=== PATIENT | female | born 1965 | race Caucasian/White ===

== ENCOUNTER 2020-01-14 17:37 | Emergency (ER) | payer OTHER ==
[2020-01-14 21:08] LABS: ABS Basophils 0.1 10^3/ul (0-0.2); ABS Eosinophils 0.3 10^3/ul (0-0.6); ABS Lymphocytes 2.5 10^3/ul (1.0-4.8); ABS Monocytes 0.7 10^3/ul (0-0.8); ABS Neutrophils 4.4 10^3/ul (1.5-7.7); Eosinophil % 4.3 %; Hematocrit 39 % (35-47); Lymphocyte % 31.2 %; Mean Corpuscular HGB Conc 34 g/dL (31-36); Mean Corpuscular Hemoglobin 31 pg (27-31); Mean Corpuscular Volume 92 fL (80-97); Mean Platelet Volume 7.6 fL (7.4-10.4); Nucleated Red Blood Cells % 0.1; Platelet Count 266 10^3/uL (150-450); Red Blood Count 4.19 10^6 /uL (3.70-4.87); Red Cell Distribution Width 14 % (10-15)
[2020-01-14] MEDS ORDERED: cloNIDine TAB* 0.1 MG PO ONE (21:08)
[2020-01-14 21:23] LABS: ALT 31 U/L (7-52); AST 40 U/L (13-39); Albumin/Globulin Ratio 1.8 (1-3); Alkaline Phosphatase 97 U/L (34-104); Anion Gap 8 mmol/L (2-11); BUN/Creatinine Ratio 14.4 (8-20); Blood Urea Nitrogen 13 mg/dL (6-24); CO2 Carbon Dioxide 30 mmol/L (22-32); Calcium 9.9 mg/dL (8.6-10.3); Chloride 101 mmol/L (101-111); EGFR African American 79.3 (>60); EGFR Non-African American 65.5 (>60); Globulin 2.8 g/dL (2-4); Glucose 101 mg/dL (70-100); Potassium 3.3 mmol/L (3.5-5.0); Sodium 139 mmol/L (135-145); Total Protein 7.8 g/dL (6.4-8.9)
--- NOTE | 2020-01-14 21:33 | ED ---
Complex/Multi-Sys Presentation - HPI Summary HPI Summary: The patient is a 54-year-old female presenting to [facility] with a chief complaint of plastic poisoning and weird energy onset gradually since August 2019. She reports that in August 2019, she had to replace the ground in her outside kennel for her dogs, so her boyfriend brought bags of rocks home. She observed the material to be slimy and weird but she placed it in the outside kennel anyway. She noticed that her dogs would come inside with the material under their nails, but she would see it change colors and size bubble up like chemical reactions weird smells. She states that the material embedded itself in the floors and has made its way into her body, as she has seen it in her stools and her dogs stool. She believes she is being poisoned, as she is experiencing a weird energy. She states Im not prepared to say it [the material] is not radioactive. Tonight, her symptoms worsened as she felt her phone jump out of her pocket. PMHx: HTN, syringomelia, drug abuse. Former smoker , occasional EtOH, marijuana use. Medications reviewed. Allergies noted. - History Of Current Complaint Chief Complaint: EDGeneral Time Seen by Provider: 01/14/20 20:35 Hx Obtained From: Patient Onset/Duration: Gradual Onset, Lasting Weeks, Still Present Severity Currently: Moderate Severity Initially: Mild Aggravating Factor(s): change in environment Alleviating Factor(s): nothing Associated Signs And Symptoms: Positive: Other - "weird energy," abnormal stools - Allergies/Home Medications Allergies/Adverse Reactions: Allergies Allergy/AdvReac Type Severity Reaction Status Date / Time MS Morphine [Morphine] AdvReac Intermediate Headache Verified 01/14/20 18:26 Home Medications: Home Medications NK [No Home Medications Reported] 01/14/20 [History Confirmed 01/14/20] PMH/Surg Hx/FS Hx/Imm Hx Endocrine/Hematology History: Denies: Hx Anticoagulant Therapy, Hx Diabetes, Hx Thyroid Disease, Other Endocrine/Hematological Disorders Cardiovascular History: Reports: Hx Hypertension Denies: Hx Congestive Heart Failure, Other Cardiovascular Problems/Disorders Respiratory History: Denies: Hx Asthma, Other Respiratory Problems/Disorders GI History: Reports: Other GI Disorders - GASTROENTERITIS W/HOSPITALIZATION 2003 History: Denies: Other Problems/Disorders Musculoskeletal History: Reports: Hx Arthritis - hands, Hx Back Problems - SURGERY C5-C6, CHRONIC NECK/BACK PAIN, Other Musculoskeletal History - SYRINGOMYELIA, HX STRANGULATION Denies: Hx Osteoporosis Sensory History: Reports: Hx Contacts or Glasses Denies: Other Sensory Impairments Opthamlomology History: Reports: Hx Contacts or Glasses Denies: Other Sensory Impairments Neurological History: Reports: Hx Headaches, Hx Migraine, Hx Spinal Cord Injury - C5-C6, Other Neuro Impairments/Disorders - Syringomelia Psychiatric History: Denies: Hx Anxiety, Other Psychiatric Issues/Disorders - Surgical History Surgical History: Yes Surgery Procedure, Year, and Place: C-5 AND C-6 FUSION 2002 - Immunization History Date of Tetanus Vaccine: Unknown Date of Influenza Vaccine: UTD Infectious Disease History: No Infectious Disease History: Denies: Traveled Outside the [place] in Last 30 Days - Social History Alcohol Use: Occasionally Alcohol Amount: "occasional, wine" Substance Use Type: Reports: None, Marijuana Substance Use Comment - Amount & Last Used: "i smoke mj once in a while" prescribed opana, fioricet, oxycodone Hx Tobacco Use: Yes Smoking Status (MU): Former Smoker - Additional Comments History Additional Comments: drug abuse, hypertension, syringomelia Review of Systems - ROS Summary Review of Systems Summary: Home Medications Medication Instructions Recorded Confirmed Type NK [No Home Medications Reported] 01/14/20 01/14/20 History Positive: Other - "weird energy" Positive: Other - abnormal stools All Other Systems Reviewed And Are Negative: Yes Physical Exam - Summary Physical Exam Summary: General: Well-developed, Well-nourished female. Moderately agitated, disheveled. HEENT: Normocephalic, Atraumatic. Clear nasal discharge. Eyes: Conjuctiva normal, PERRL. Nares: Erythematous and edematous Oropharynx: Clear, mucous membranes moist, (-) exudates. Neck: Soft, FROM, (-) lymphadenopathy, (-) thyromegaly, (-) JVD. Cardiovascular: Normal sinus rhythm, (-) murmur. Lungs: Clear to auscultation bilaterally (-) wheezes, (-) rales, (-) rhonchi. Abdomen: Soft, non-tender, non-distended, (-) organomegaly, normal bowel sounds. Back: (-) CVA tenderness Extremities: 1+ lower extremity edema. Skin: Warm, dry. Eczematous changes of hands. Neuro: Alert and oriented x3, moves all extremities equally. No ataxia. No gait disturbance. No sensory deficit. Normal strength, normal sensation. Psychiatric: Mood is tearful to angry. Triage Information Reviewed: Yes Vital Signs On Initial Exam: Initial Vitals Temp Pulse Resp BP Pulse Ox 99.7 F 109 18 183/156 97 01/14/20 18:08 01/14/20 18:08 01/14/20 18:08 01/14/20 18:08 01/14/20 18:08 Vital Signs Reviewed: Yes Procedures - Sedation Patient Received Moderate/Deep Sedation with Procedure: No Diagnostics - Vital Signs Vital Signs Temp Pulse Resp BP Pulse Ox 01/14/20 21:09 230/120 01/14/20 21:00 26 01/14/20 20:39 17 195/119 01/14/20 20:38 25 212/149 01/14/20 20:36 29 01/14/20 19:55 97.6 F 73 20 182/109 100 01/14/20 18:08 99.7 F 109 18 183/156 97 - Laboratory Lab Results: Lab Results 01/14/20 01/14/20 01/14/20 Range/Units 20:42 20:42 20:42 WBC 8.0 (3.5-10.8) 10^3/uL RBC 4.19 (3.70-4.87) 10^6 /uL Hgb 13.0 (12.0-16.0) g/dL Hct 39 (35-47) % MCV 92 (80-97) fL MCH 31 (27-31) pg MCHC 34 (31-36) g/dL RDW 14 (10-15) % Plt Count 266 (150-450) 10^3/uL MPV 7.6 (7.4-10.4) fL Neut % (Auto) 54.3 % Lymph % (Auto) 31.2 % [place] % (Auto) 9.0 % Eos % (Auto) 4.3 % Baso % (Auto) 1.2 % Absolute Neuts (auto) 4.4 (1.5-7.7) 10^3/ul Absolute Lymphs (auto) 2.5 (1.0-4.8) 10^3/ul Absolute Monos (auto) 0.7 (0-0.8) 10^3/ul Absolute Eos (auto) 0.3 (0-0.6) 10^3/ul Absolute Basos (auto) 0.1 (0-0.2) 10^3/ul Absolute Nucleated RBC 0.0 10^3/ul Nucleated RBC % 0.1 Sodium 139 (135-145) mmol/L Potassium 3.3 L (3.5-5.0) mmol/L Chloride 101 (101-111) mmol/L Carbon Dioxide 30 (22-32) mmol/L Anion Gap 8 (2-11) mmol/L BUN 13 (6-24) mg/dL Creatinine 0.90 (0.51-0.95) mg/dL Est GFR ( Amer) 79.3 (>60) Est GFR (Non-Af Amer) 65.5 (>60) BUN/Creatinine Ratio 14.4 (8-20) Glucose 101 H (70-100) mg/dL Lactic Acid 1.2 (0.5-2.0) mmol/L Calcium 9.9 (8.6-10.3) mg/dL Total Bilirubin 0.50 (0.2-1.0) mg/dL AST 40 H (13-39) U/L ALT 31 (7-52) U/L Alkaline Phosphatase 97 (34-104) U/L Total Protein 7.8 (6.4-8.9) g/dL Albumin 5.0 (3.2-5.2) g/dL Globulin 2.8 (2-4) g/dL Albumin/Globulin Ratio 1.8 (1-3) TSH Pending Salicylates Pending Acetaminophen Pending Serum Alcohol Pending Result Diagrams: 01/14/20 20:42 01/14/20 20:42 Lab Statement: Any lab studies that have been ordered have been reviewed, and results considered in the medical decision making process. Re-Evaluation - Re-Evaluation First Eval Re-Evaluation Time: 00:15 Comment: I have discussed results with the patient. Discussed symptoms that warrant immediate return to ED. Complex Multi-Symp Course/Dx Course Of Treatment: 54-year-old female presents with concerns of being poisoned through a plastic substance. Back in August she needed to replace some rocks outside in her cannot. Her boyfriend brought home some bags of rocks that contractors use as temporary driveways. She states to the bags had weird slimy stuff inside. This substance has been part of the house by her dogs. She feels it is through her whole body. She states it's been in her stool. She has seen in her dog stool as well. She has concerns that perhaps it is radioactive. She feels the material breaks down and poisoned her. Patient has no significant physical findings other than mild agitation. Workup is essentially negative except for slightly low potassium which is replaced orally. Cocaine and marijuana in the urine. Patient surprised of cocaine in her urine. She denies any drug use. Patient advised to follow up with PCP. Follow-up sooner for any worsening symptoms. - Diagnoses Provider Diagnoses: Cocaine use, Hypokalemia, Abnormal fear, Hypertension Discharge ED - Sign-Out/Discharge Documenting (check all that apply): Patient Departure - Patient will be discharged home. - Discharge Plan Condition: Stable Disposition: HOME Patient Education Materials: Hypokalemia (ED), Cocaine Abuse (ED), Hypertension (ED) Referrals: [facility] [Outside] - 3 Days Additional Instructions: Please follow up with your primary care physician within three days. Please return to ED for any new or worsening symptoms. - Billing Disposition and Condition Condition: STABLE Disposition: Home - Attestation Statements Document Initiated by Zechariah: Yes Documenting Scribe: Donna Madsen Provider For Whom Zechariah is Documenting (Include Credential): MD Tiago Springibricky Attestation: Donna Flor scribed for Dr. Evelina Rodriguez MD on 01/15/20 at 0048. Scribe Documentation Reviewed: Yes Provider Attestation: The documentation as recorded by the Donna montiel accurately reflects the service I personally performed and the decisions made by me, Dr. Evelina Rodriguez MD Status of Zechariah Document: Viewed
[2020-01-14 22:04] LABS: Acetaminophen < 15 mcg/mL; Alcohol < 10 mg/dL (<10); Salicylate < 2.50 mg/dL (<30)
[2020-01-14 22:20] LABS: TSH (Thyroid Stimulating Horm) 0.89 mcIU/mL (0.34-5.60)
[2020-01-14] MEDS ORDERED: Potassium Chlor TAB* 20 MEQ TAB.ER PO ONE (22:32)
[2020-01-14 23:50] LABS: Urine Appearance Cloudy; Urine Bilirubin Negative (Negative); Urine Blood Negative (Negative); Urine Color Yellow; Urine Glucose Negative (Negative); Urine Ketones Negative (Negative); Urine Nitrite Negative (Negative); Urine Protein Negative (Negative); Urine Specific Gravity 1.008 (1.010-1.030); Urine Urobilinogen Negative (Negative)
[2020-01-14 23:53] LABS: Urine Bacteria Absent (Absent); Urine Red Blood Cell Absent (Absent); Urine Squamous Epithelial Cell Present (Absent); Urine White Blood Cell 1+(6-10/hpf) (Absent)
[2020-01-14 23:56] LABS: Urine Benzodiazepine Screen None Detected (None Detect); Urine Opiates Screen None Detected (None Detect)
[2020-01-15 00:31] VITALS: BP 91/55
== END 2020-01-15 00:31 | disposition home or self-care (01) ==
LOC: ED 17:37
DX: F14.90 Cocaine use, unspecified, uncomplicated (principal); E87.6 Hypokalemia; I10 Essential (primary) hypertension; F40.298 Other specified phobia; Z87.891 Personal history of nicotine dependence; Z88.6 Allergy status to analgesic agent
CPT/HCPCS: 36415; 80053; 80307; 80320; 80329; 81003; 81015; 83605; 84443; 85025; 87086; 99283; A9270-GY; G0480

== ENCOUNTER 2022-08-20 15:33 | Inpatient (IN) ==
[~2022-08-20 15:33] MED LIST: Naloxone 4 mg VIAL 0.4 MG/ML 10 ml VIAL (4 mg) ONE; Rocuronium 50 mg VIAL 10 mg/ml 5 ml VIAL (50 mg) ONE
[2022-08-20] MEDS ORDERED: Rocuronium 50 mg VIAL 10 mg/ml 5 ml VIAL (50 mg) ONE (15:46)
[2022-08-20] MEDS ORDERED: Etomidate 40 mg/20 ml (2 MG/ML) 20 ml VIAL (40 mg) ONE (15:46)
[2022-08-20] MEDS ORDERED: Propofol 10 mg/ml 100 ML BTL 100 ML ONE (15:50)
[2022-08-20] MEDS ORDERED: nitroGLYCERIN DRIP 0 MCG/0 ML BTL ONE (15:51)
[2022-08-20] MEDS ORDERED: Furosemide 40 mg/4 ml IV VIAL IV ONE (15:55)
[2022-08-20] MEDS ORDERED: nitroGLYCERIN DRIP 25,000 MCG/250 ML BTL IV SCH (16:00)
[2022-08-20] MEDS: Propofol 10 mg/ml 100 ML BTL 100 ML IV SCH ×2 (16:00→20:09)
[2022-08-20 16:46] LABS: ABS Basophils 0.1 10^3/ul (0-0.2); ABS Eosinophils 0.4 10^3/ul (0-0.6); ABS Lymphocytes 2.9 10^3/ul (1.0-4.8); ABS Monocytes 0.7 10^3/ul (0-0.8); ABS Neutrophils 5.9 10^3/ul (1.5-7.7); Eosinophil % 4.2 %; Hematocrit 44 % (35-47); Hemoglobin 14.9 g/dL (12.0-16.0); Lymphocyte % 29.3 %; Mean Corpuscular HGB Conc 34 g/dL (31-36); Mean Corpuscular Hemoglobin 32 pg (27-31); Mean Corpuscular Volume 95 fL (80-97); Mean Platelet Volume 7.3 fL (7.4-10.4); Platelet Count 220 10^3/uL (150-450); Red Blood Count 4.67 10^6 /uL (3.70-4.87); Red Cell Distribution Width 14 % (10-15); White Blood Count 9.9 10^3/uL (3.5-10.8)
[2022-08-20 16:51] LABS: INR 0.87 (0.89-1.11)
[2022-08-20 17:06] LABS: Urine Appearance Clear; Urine Bilirubin Negative (Negative); Urine Color Yellow; Urine Glucose Negative (Negative); Urine Ketones Negative (Negative)
[2022-08-20 17:07] LABS: Urine Blood Negative (Negative); Urine Nitrite Negative (Negative); Urine Protein Negative (Negative); Urine Urobilinogen 0.2 (Negative) (Negative)
[2022-08-20 17:39] LABS: Albumin 4.5 g/dL (3.2-5.2); Calcium 10.2 mg/dL (8.6-10.3); Globulin 2.3 g/dL (2-4); Potassium 4.2 mmol/L (3.5-5.0); Total Bilirubin 0.4 mg/dL (0.2-1.0); Total Protein 6.8 g/dL (6.4-8.9); eGFR CKD-EPI 80.9 (>60)
[2022-08-20] MEDS ORDERED: Propofol 10 MG/ML 20 ML BTL IV PUSH ONE (17:49)
[2022-08-20 19:54] LABS: Urine Benzodiazepine Screen Presumptive Positive (None Detect); Urine Cannabinoids Screen Presumptive Positive (None Detect); Urine Opiates Screen Presumptive Positive (None Detect)
[2022-08-20] MEDS ORDERED: Acetaminophen IV 1 GM/100ML 1,000 MG/100 ML BAG IV ONE (21:01)
[2022-08-20] MEDS: Chlorhexidine MOUTHWASH 0.12% 15 ML UDC SWISH SPIT SCH (21:50)
[2022-08-20] MEDS: Enoxaparin 40 MG/0.4 ML SYR SUBCUT SCH (21:50)
[2022-08-21] MEDS ORDERED: Midazolam 2 mg/2 ml VIAL 1 mg/ml 2 ml VIAL (2 mg) IV SLOW PU ONE (01:33)
[2022-08-21] MEDS ORDERED: Midazolam 2 mg/2 ml VIAL 1 mg/ml 2 ml VIAL (2 mg) ONE (01:35)
[2022-08-21] MEDS: Propofol 10 mg/ml 100 ML BTL 100 ML IV SCH ×3 (01:42→11:53)
[2022-08-21] MEDS: Chlorhexidine MOUTHWASH 0.12% 15 ML UDC SWISH SPIT SCH ×4 (02:03→12:25)
[2022-08-21] MEDS: cefTRIAXone 2 gm/50 mL D5W 2 GM/50 ML BAG IV SCH (04:20)
[2022-08-21 04:21] LABS: CO2 Carbon Dioxide 27 mmol/L (22-32); Calcium 9.3 mg/dL (8.6-10.3); Chloride 98 mmol/L (101-111); Sodium 140 mmol/L (135-145)
[2022-08-21 04:23] LABS: ABS Lymphocytes 1.2 10^3/ul (1.0-4.8); ABS Neutrophils 11.5 10^3/ul (1.5-7.7); Eosinophil % 0.1 %; Hematocrit 50 % (35-47); Hemoglobin 16.2 g/dL (12.0-16.0); Lymphocyte % 8.7 %; Mean Corpuscular HGB Conc 33 g/dL (31-36); Mean Corpuscular Hemoglobin 31 pg (27-31); Mean Corpuscular Volume 94 fL (80-97); Mean Platelet Volume 7.5 fL (7.4-10.4); Platelet Count 180 10^3/uL (150-450); Red Blood Count 5.26 10^6 /uL (3.70-4.87); Red Cell Distribution Width 15 % (10-15); White Blood Count 13.7 10^3/uL (3.5-10.8)
[2022-08-21 04:27] LABS: Blood Urea Nitrogen 14 mg/dL (6-24); Glucose 123 mg/dL (70-100); eGFR CKD-EPI 100.3 (>60)
[2022-08-21 04:30] LABS: Anion Gap 15 mmol/L (2-11)
[2022-08-21] MEDS ORDERED: Acetaminophen IV 1 GM/100ML 1,000 MG/100 ML BAG IV ONE (06:59)
[2022-08-21] MEDS: Pantoprazole VIAL 40 MG VIAL IV SCH (08:13)
[2022-08-21] MEDS ORDERED: Dexmedetomidine 1,000 MCG in NS 0.9% 250 ml 240 ML IV SCH (09:00)
[2022-08-21] MEDS: D5NS 0.9% 1000 ml BAG 1,000 ML IV SCH ×2 (10:07→23:09)
[2022-08-21] MEDS: niCARdipine 0.1MG/ML IVPREMIX 20 MG/200 ML BAG IV SCH ×4 (11:03→23:10)
[2022-08-21] MEDS ORDERED: Lorazepam PYXIS KEY PRN (15:56)
[2022-08-21] MEDS ORDERED: Acetaminophen IV 1 GM/100ML 1,000 MG/100 ML BAG IV SCH (16:00)
[2022-08-21] MEDS ORDERED: Multivitamins/Minerals TAB PO SCH (16:00)
[2022-08-21] MEDS: Enoxaparin 40 MG/0.4 ML SYR SUBCUT SCH (20:24)
[2022-08-21] MEDS: Acetaminophen IV 1 GM/100ML 1,000 MG/100 ML BAG IV PRN (20:24)
[2022-08-21] MEDS: LORazepam 2 mg VIAL 1 ml IV PUSH SCH (22:22)
[2022-08-22] MEDS: LORazepam 2 mg VIAL 1 ml IV PUSH SCH ×3 (00:05→10:48)
[2022-08-22] MEDS ORDERED: Metoclopramide 5 MG/ML VIAL (10 mg) IV SLOW PU ONE (01:03)
[2022-08-22] MEDS: niCARdipine 0.1MG/ML IVPREMIX 20 MG/200 ML BAG IV SCH ×3 (01:37→06:52)
[2022-08-22] MEDS: cefTRIAXone 2 gm/50 mL D5W 2 GM/50 ML BAG IV SCH (06:04)
[2022-08-22 06:41] LABS: ABS Lymphocytes 1.3 10^3/ul (1.0-4.8); ABS Monocytes 0.6 10^3/ul (0-0.8); Eosinophil % 0.2 %; Hematocrit 47 % (35-47); Hemoglobin 15.3 g/dL (12.0-16.0); Mean Corpuscular HGB Conc 33 g/dL (31-36); Mean Corpuscular Hemoglobin 31 pg (27-31); Mean Corpuscular Volume 94 fL (80-97); Mean Platelet Volume 7.5 fL (7.4-10.4); Platelet Count 197 10^3/uL (150-450); Red Blood Count 4.94 10^6 /uL (3.70-4.87); Red Cell Distribution Width 14 % (10-15)
[2022-08-22 07:19] LABS: Calcium 9.1 mg/dL (8.6-10.3); Magnesium 1.8 mg/dL (1.9-2.7); Potassium 3.5 mmol/L (3.5-5.0); eGFR CKD-EPI 105.9 (>60)
[2022-08-22] MEDS ORDERED: Magnesium Sulfate IV 1GM/100ML 1 GM/100 ML BAG IV ONE (07:31)
[2022-08-22] MEDS: Pantoprazole VIAL 40 MG VIAL IV SCH (07:58)
[2022-08-22] MEDS: KCL 20 MEQ/100 ML IVPREMIX 20 MEQ/100 ML BAG IV SCH ×3 (08:55→13:25)
[2022-08-22] MEDS ORDERED: Ondansetron 4 mg VIAL 2 MG/ML 2 ml VIAL IV ONE ×2 (09:27→15:44)
[2022-08-22] MEDS: Lidocaine PATCH 5% PATCH TRANSDERM SCH (10:17)
[2022-08-22] MEDS: Acetaminophen IV 1 GM/100ML 1,000 MG/100 ML BAG IV PRN ×2 (10:18→20:08)
[2022-08-22 10:19] LABS: C Reactive Protein 276.95 mg/L (<8.01)
[2022-08-22] MEDS ORDERED: Senna TAB 8.6 mg TAB PO PRN (10:42)
[2022-08-22] MEDS ORDERED: Iohexol 350 (CONTRAST) 500 ML MDV IV ONE (11:08)
[2022-08-22] MEDS: Butalb/Acetamin/Caff TAB 325-50-40MG PO PRN (11:52)
[2022-08-22] MEDS ORDERED: Labetalol IV 5 MG/ML 20 ml VIAL IV PUSH ONE (12:56)
[2022-08-22] MEDS ORDERED: Labetalol IV 5 MG/ML 20 ml VIAL IV PUSH PRN (16:50)
[2022-08-22] MEDS ORDERED: Prochlorperazine 5 mg/ml 2 ml VIAL (10 mg) IV ONE (19:56)
[2022-08-22] MEDS: Enoxaparin 40 MG/0.4 ML SYR SUBCUT SCH (21:02)
[2022-08-22] MEDS: Polyethylene Glycol 3350 17 GM PACKET PO SCH (21:03)
[2022-08-22 23:35] LABS: High Sensitivity Troponin 1 Hr 640 pg/mL (<15)
[2022-08-23] MEDS ORDERED: Enoxaparin 30 MG/0.3 ML SYR SUBCUT ONE (00:55)
[2022-08-23] MEDS: Ondansetron 4 mg VIAL 2 MG/ML 2 ml VIAL IV PRN ×2 (02:33→18:17)
[2022-08-23] MEDS: cefTRIAXone 2 gm/50 mL D5W 2 GM/50 ML BAG IV SCH (05:30)
[2022-08-23 06:14] LABS: ABS Lymphocytes 1.6 10^3/ul (1.0-4.8); ABS Monocytes 0.8 10^3/ul (0-0.8); ABS Neutrophils 9.1 10^3/ul (1.5-7.7); Eosinophil % 0.1 %; Hematocrit 51 % (35-47); Hemoglobin 17.1 g/dL (12.0-16.0); Lymphocyte % 14.2 %; Mean Corpuscular HGB Conc 34 g/dL (31-36); Mean Corpuscular Hemoglobin 32 pg (27-31); Mean Corpuscular Volume 93 fL (80-97); Mean Platelet Volume 7.6 fL (7.4-10.4); Platelet Count 210 10^3/uL (150-450); Red Blood Count 5.43 10^6 /uL (3.70-4.87); Red Cell Distribution Width 14 % (10-15); White Blood Count 11.6 10^3/uL (3.5-10.8)
[2022-08-23 06:48] LABS: Calcium 9.9 mg/dL (8.6-10.3); Potassium 3.7 mmol/L (3.5-5.0); eGFR CKD-EPI 88.3 (>60)
[2022-08-23] MEDS: KCL 10 MEQ/50 ML IVPREMIX 10 MEQ/50 ML BAG IV SCH ×2 (08:59→10:36)
[2022-08-23] MEDS: Pantoprazole VIAL 40 MG VIAL IV SCH (09:00)
[2022-08-23] MEDS: Enoxaparin 60 MG/0.6 ML SYR SUBCUT SCH ×2 (09:00→21:07)
[2022-08-23] MEDS: Lidocaine PATCH 5% PATCH TRANSDERM SCH (09:01)
[2022-08-23] MEDS: Polyethylene Glycol 3350 17 GM PACKET PO SCH ×2 (09:34→10:10)
[2022-08-23] MEDS ORDERED: Potassium Chloride LIQUID 20 MEQ/15 ML LIQUID PO ONE (10:17)
[2022-08-23] MEDS: Acetaminophen IV 1 GM/100ML 1,000 MG/100 ML BAG IV PRN (16:37)
[2022-08-23] MEDS: Metoclopramide 5 MG/ML VIAL (10 mg) IV PRN (23:20)
[2022-08-24] MEDS: Ondansetron 4 mg VIAL 2 MG/ML 2 ml VIAL IV PRN ×2 (00:29→21:29)
[2022-08-24] MEDS: Acetaminophen IV 1 GM/100ML 1,000 MG/100 ML BAG IV PRN (00:48)
[2022-08-24] MEDS: Butalb/Acetamin/Caff TAB 325-50-40MG PO PRN ×3 (00:55→23:00)
[2022-08-24] MEDS: cefTRIAXone 2 gm/50 mL D5W 2 GM/50 ML BAG IV SCH (05:37)
[2022-08-24 06:26] LABS: ABS Basophils 0.1 10^3/ul (0-0.2); ABS Lymphocytes 1.9 10^3/ul (1.0-4.8); ABS Monocytes 0.7 10^3/ul (0-0.8); ABS Neutrophils 6.4 10^3/ul (1.5-7.7); Eosinophil % 0.1 %; Hematocrit 49 % (35-47); Hemoglobin 16.2 g/dL (12.0-16.0); Mean Corpuscular HGB Conc 33 g/dL (31-36); Mean Corpuscular Hemoglobin 31 pg (27-31); Mean Corpuscular Volume 92 fL (80-97); Mean Platelet Volume 7.6 fL (7.4-10.4); Platelet Count 231 10^3/uL (150-450); Red Blood Count 5.29 10^6 /uL (3.70-4.87); Red Cell Distribution Width 14 % (10-15); White Blood Count 9.1 10^3/uL (3.5-10.8)
[2022-08-24 06:46] LABS: Calcium 9.6 mg/dL (8.6-10.3); Potassium 3.5 mmol/L (3.5-5.0); eGFR CKD-EPI 85.7 (>60)
[2022-08-24] MEDS ORDERED: Lorazepam PYXIS KEY PRN (07:53)
[2022-08-24] MEDS ORDERED: LORazepam 2 mg VIAL 1 ml IV PUSH ONE (07:54)
[2022-08-24] MEDS ORDERED: Lactated Ringers 1000 ml BAG 1,000 ML IV SCH (08:00)
[2022-08-24] MEDS ORDERED: Potassium Chloride LIQUID 20 MEQ/15 ML LIQUID PO ONE (08:31)
[2022-08-24] MEDS: Lidocaine PATCH 5% PATCH TRANSDERM SCH (08:49)
[2022-08-24] MEDS: Pantoprazole VIAL 40 MG VIAL IV SCH (08:49)
[2022-08-24] MEDS: Enoxaparin 60 MG/0.6 ML SYR SUBCUT SCH ×2 (08:49→20:34)
[2022-08-24] MEDS: Metoclopramide 5 MG/ML VIAL (10 mg) IV PRN (22:54)
[2022-08-25] MEDS: Acetaminophen IV 1 GM/100ML 1,000 MG/100 ML BAG IV PRN (02:20)
[2022-08-25] MEDS: cefTRIAXone 2 gm/50 mL D5W 2 GM/50 ML BAG IV SCH (04:29)
[2022-08-25] MEDS: Enoxaparin 60 MG/0.6 ML SYR SUBCUT SCH (08:45)
[2022-08-25] MEDS: Pantoprazole VIAL 40 MG VIAL IV SCH (08:45)
[2022-08-25 11:07] LABS: ABS Basophils 0.1 10^3/ul (0-0.2); ABS Lymphocytes 2.6 10^3/ul (1.0-4.8); ABS Monocytes 0.8 10^3/ul (0-0.8); ABS Neutrophils 5.4 10^3/ul (1.5-7.7); Eosinophil % 0.2 %; Hematocrit 45 % (35-47); Hemoglobin 15.2 g/dL (12.0-16.0); Lymphocyte % 29.4 %; Mean Corpuscular HGB Conc 34 g/dL (31-36); Mean Corpuscular Hemoglobin 31 pg (27-31); Mean Corpuscular Volume 92 fL (80-97); Mean Platelet Volume 7.8 fL (7.4-10.4); Nucleated Red Blood Cells % 0.2; Platelet Count 248 10^3/uL (150-450); Red Blood Count 4.91 10^6 /uL (3.70-4.87); Red Cell Distribution Width 13 % (10-15); White Blood Count 8.9 10^3/uL (3.5-10.8)
[2022-08-25] MEDS: Butalb/Acetamin/Caff TAB 325-50-40MG PO PRN (11:46)
[2022-08-25 11:56] LABS: Calcium 9.4 mg/dL (8.6-10.3); Potassium 3.1 mmol/L (3.5-5.0); eGFR CKD-EPI 97.1 (>60)
[2022-08-25 13:06] VITALS: BP 132/93
== END 2022-08-25 13:00 | disposition home or self-care (01) | DRG 812 ==
LOC: ED 15:33 → EDHOLD 16:25 → ICU 19:18
PROVIDERS: ADMIT Internal Medicine Critical Care Medicine; ATTEND Internal Medicine Critical Care Medicine